=== PATIENT | male | born 1975 | race Caucasian/White ===

== ENCOUNTER 2016-11-30 20:20 | Emergency (ER) | payer SELFPAY ==
[2016-11-30 20:36] VITALS: BMI 38.0
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
[2016-11-30 23:39] VITALS: BP 140/80; PULSE 80; RESP 14; TEMP 98.5; O2SAT 99
== END 2016-11-30 23:39 | disposition home or self-care (01) ==
LOC: SUPCPDRO 20:20 → C.ER 20:20
DX: L97.919 Non-pressure chronic ulcer of unspecified part of right lower leg with unspecified severity (principal); L98.9 Disorder of the skin and subcutaneous tissue, unspecified